=== PATIENT | male | born 1975 | race African-American/Black ===

== ENCOUNTER 2016-06-30 13:48 | Inpatient (IN) | payer OTHER ==
[~2016-06-30] VITALS: Ht 180.3 cm; Wt 86.9 kg
[2016-09-06] VITALS (11 sets, daily range): BP systolic 95–126; BP diastolic 55–82; PULSE 46–65; TEMP 97.7–98.7
[2016-09-06] MEDS ORDERED: LOTREL 5 MG-401 CAP PO (06:29)
[2016-09-07 00:21] VITALS: BP 129/69; PULSE 75; TEMP 99.6
[2016-09-07 04:00] VITALS: BP 108/56; PULSE 80; TEMP 98.2
[2016-09-07 07:17] LABS: HEMATOCRIT 34.7 % (42.0-52.0)
[2016-09-07 07:34] VITALS: BP 115/62; PULSE 74; TEMP 100.2
[2016-09-07 12:30] VITALS: BP 115/69; PULSE 71; TEMP 97.9
[2016-09-08 05:22] VITALS: BP 128/68; PULSE 85; TEMP 98.6
[2016-09-08 06:48] LABS: HEMATOCRIT 33.6 % (42.0-52.0); HEMOGLOBIN 11.7 g/dl (13.5-18.0)
[2016-09-08] MEDS ORDERED: CELEBREX 200MG200 MG PO (06:52)
[2016-09-08] MEDS ORDERED: ASPI325T6 PO (06:52)
[2016-09-08] MEDS ORDERED: NORCO 325 MG-7.1 TAB PO (06:53)
[2016-09-08] MEDS ORDERED: COLACE 100100 MG/CAP PO (06:53)
[2016-09-08 07:53] VITALS: BP 123/74; PULSE 79; TEMP 98.4
[2016-09-08 11:42] VITALS: BP 113/59; PULSE 74; TEMP 98.7
== END 2016-09-08 15:00 | disposition home or self-care (01) | DRG 470 ==
LOC: JCC 09-06 05:44
PROVIDERS: Orthopaedic Surgery
PROC: 0SRB0JA Replacement of Left Hip Joint with Synthetic Substitute, Uncemented, Open Approach (ICD-10-PCS; principal; 2016-09-06 07:30)
DX: M16.12 Unilateral primary osteoarthritis, left hip (principal)
CPT/HCPCS: A4315; A9284; C1713; C1776; J0690; J2250; J2704; J3010; J7120

== ENCOUNTER → 2016-09-01 | Outpatient (CLI) | payer OTHER ==
[~2016-09-01] MED LIST: ASPI325T6 PO; CELEBREX 200MG200 MG PO; COLACE 100100 MG/CAP PO; LOTREL 5 MG-401 CAP PO; NORCO 325 MG-7.1 TAB PO
== END ==
LOC: COL.LAB 12:49
DX: Z01.812 Encounter for preprocedural laboratory examination (principal)

== ENCOUNTER → 2016-10-21 | Outpatient (CLI) | payer OTHER | LOC: COL.RAD 12:51 | DX: M79.605 Pain in left leg (principal); Z96.642 Presence of left artificial hip joint ==